=== PATIENT | male | born 1940 | race Caucasian/White ===

== ENCOUNTER → 2022-01-19 | Outpatient (CLI) | payer MEDICARE, OTHER | LOC: KOH-I 08:59 | DX: M25.572 Pain in left ankle and joints of left foot (principal) | CPT/HCPCS: 73610; 73630 ==

== ENCOUNTER → 2022-01-28 | Outpatient (CLI) | payer MEDICARE | LOC: KOH-I 12:36 | DX: Z01.818 Encounter for other preprocedural examination (principal); M79.662 Pain in left lower leg; M21.542 Acquired clubfoot, left foot; M21.6X2 Other acquired deformities of left foot; I77.9 Disorder of arteries and arterioles, unspecified | CPT/HCPCS: 73700; 93926 ==

== ENCOUNTER → 2022-03-01 | Outpatient (CLI) | payer MEDICARE ==
[~2022-03-01] MED LIST: FOLIC ACID1 MG PO; HYDROCODONE-AC1 EACH PO; LEVOTHYROXINE88 MCG PO; NORVASC10 MG PO; PEPCID40 MG PO; ST. JOSEPH ASPI81 MG PO; VITAMIN B-1250 MCG PO; ZESTRIL10 MG PO
[2022-03-01 13:59] LABS: HEMOGLOBIN 10.5 gm/dl (14.0-17.5); RED BLOOD COUNT 3.33 M/UL (4.20-5.50); WHITE BLOOD COUNT 9.3 K/UL (4.5-11.0)
== END ==
LOC: OPSV2 12:30
PROVIDERS: Anesthesiology
DX: Z01.818 Encounter for other preprocedural examination (principal); E11.610 Type 2 diabetes mellitus with diabetic neuropathic arthropathy; M21.969 Unspecified acquired deformity of unspecified lower leg; I45.10 Unspecified right bundle-branch block; R94.31 Abnormal electrocardiogram [ECG] [EKG]
CPT/HCPCS: 80048; 85025; 93005